=== PATIENT | female | born 1955 | race Caucasian/White ===

== ENCOUNTER → 2023-08-07 15:38 | Outpatient (REF) | payer MEDICARE, OTHER, SELFPAY | LOC: RAD 15:38 | PROVIDERS: ATTENDING PHYSICIAN Nurse Practitioner Adult Health | DX: M79.652 Pain in left thigh (principal) | CPT/HCPCS: 72110; 73502 ==

== ENCOUNTER → 2023-08-15 09:19 | Outpatient (REF) | payer MEDICARE, OTHER, SELFPAY | LOC: HWRAD 09:19 | PROVIDERS: ATTENDING PHYSICIAN Nurse Practitioner Adult Health; FAMILY PHYSICIAN Family Medicine | DX: R10.30 Lower abdominal pain, unspecified (principal) | CPT/HCPCS: 74177; Q9967 ==

== ENCOUNTER → 2023-09-30 09:51 | Outpatient (REF) | payer MEDICARE, OTHER, SELFPAY | LOC: RAD 09:51 | PROVIDERS: ATTENDING PHYSICIAN Internal Medicine; FAMILY PHYSICIAN Family Medicine | DX: R13.19 Other dysphagia (principal) | CPT/HCPCS: 74221 ==

== ENCOUNTER 2024-08-21 17:06 | Emergency (ER) | payer MEDICARE, OTHER, SELFPAY ==
[2024-08-21 17:07] VITALS: BP 148/85
[2024-08-21] MEDS: VIBRAMYCIN 200 MG PO (18:37)
--- NOTE | 2024-08-21 23:52 | ED.GENMED ---
History of Present Illness
General
Chief Complaint: Insect Sting
Exam Limitations: none
Time Seen by Provider: 08/21/24 17:49
Nursing documentation reviewed up to this point in time: agreed with
History of Present Illness
History of Present Illness:
Patient to ED with deer tick right shoulder. She was unable to remove. Believes tick has been in place approx 24 hours, No other complaints
Past History
Past History
ED Past Medical History: None
ED Past Surgical History: None
Review of Systems
Review of Systems
Allergies reviewed?: Yes
All Other Systems: ROS reviewed and negative except as documented in HPI and ROS
Constitutional: Reports no symptoms
EENT: Reports no symptoms
Respiratory: Reports no symptoms
Cardiac: Reports no symptoms
ABD/GI: Reports no symptoms
: Reports no symptoms
Musculoskeletal: Reports no symptoms
Skin: Reports other (deer tick right shoulder)
Neurological: Reports no symptoms
Psychiatric: Reports no symptoms
Phy Exam
General Physical Exam
General Presentation: well appearing and no apparent distress
General age: appears stated age
General Skin: warm and dry
General Habitus: normal
Neurological Exam
Neurological Exam: alert and oriented x3
Musculoskeletal Exam
Musculoskeletal Exam: full ROM
Skin Exam
Skin Exam: normal color, warm/dry and other (deer tick right shoulder)
Psychiatric Exam
Psychiatric Exam: normal mood/affect
Course
Orders/Labs/Results
Orders:
Orders
08/21/24 18:14
Doxycycline [Vibramycin] 200 mg PO NOW STA
Vital Signs
Initial and Last Documented VS:
Initial Vital Signs
Temp Pulse Resp BP Pulse Ox
97.1 F 74 16 148/85 99
08/21/24 17:07 08/21/24 17:07 08/21/24 17:07 08/21/24 17:07 08/21/24 17:07
Last Documented Vital Signs
Temp Pulse Resp BP Pulse Ox
97.1 F 74 16 148/85 99
08/21/24 17:07 08/21/24 17:07 08/21/24 17:07 08/21/24 17:07 08/21/24 17:07
*Critical Care Note
Total Time (30-74mins, 75-104mins- exclusive of procedures): Not Applicable
Update Note
Update Note:
Patient to ED for deer tick removal or right shoulder. Tick removed with tweezers without difficulty. She requested tick so that she can take it to the tick lab for analysis. Placed in specimen cup for her. Given Doxycyline 20mg in ED
prophylactically. SHe is discharged home and will follow up with PCP
ED Attending Note
-
Portions of this chart may have been created with voice recognition software.� Occasional wrong word or��sound alike� substitutions may have occurred due to the inherent limitations of voice recognition software.
Discharge Plan
Departure
Patient Disposition: Home (Routine Discharge)
Date of Disposition: 08/21/24
Time of Disposition: 18:15
Patient with high blood pressure during this ER visit?: No
Condition: Good
Covid-19: Not Applicable
Discharge Problem:
Tick bite
Instructions: Insect bites and stings - ED discharge instructions
Activity Restrictions/Additional Instructions:
Follow up with your family doctor.
Interventions
Interventions:
*Risk Screen - Suicide Last Done: 08/21/24 17:07
*General Assessment Last Done: 08/21/24 17:07
*Neglect/Abuse Screening Last Done: 08/21/24 17:07
*ED- Fall Risk Assessment Last Done: 08/21/24 18:39
*ED COVID-19 Vaccine History Last Done: 08/21/24 18:39
*Nursing Disposition Last Done: 08/21/24 18:40
ED-Skin Assessment Last Done: 08/21/24 18:39
ED- Pulmonary Assessment Last Done: 08/21/24 18:39
Discharge Date and Time
Discharge Date/Time: 08/21/24 18:40
Print Language: IRISH
== END 2024-08-21 18:40 | disposition home or self-care (01) ==
LOC: EMR 17:06
PROVIDERS: EMERGENCY PHYSICIAN Emergency Medicine; FAMILY PHYSICIAN Family Medicine
DX: S40.261A Insect bite (nonvenomous) of right shoulder, initial encounter (principal); W57.XXXA Bitten or stung by nonvenomous insect and other nonvenomous arthropods, initial encounter
CPT/HCPCS: 99283